=== PATIENT | male | born 1990 | race Caucasian/White ===

== ENCOUNTER 2018-09-15 17:47 | Emergency (ER) | payer BC ==
[2018-09-15] MEDS ORDERED: Albuterol/Ipratropium Neb 3 ML AERS HHN ONE ×2 (18:16→18:28)
--- NOTE | 2018-09-15 18:24 | ED Physician Chart ---
ED Chief Complaint/HPI - Patient Information Date Seen:: 09/15/18 Time Seen:: 18:05 Chief Complaint:: shortness of breath History of Present Illness:: Patient developed shortness of breath 2 days ago. He's had a cough productive of dark yellow sputum for 3 days. He felt warm but has not taken his temperature. Allergies:: Allergies Allergy/AdvReac Type Severity Reaction Status Date / Time No Known Allergies Allergy Verified 09/15/18 17:54 Vitals:: Vital Signs - 8 hr 09/15/18 17:54 Temp 99.5 F HR 126 RR 18 BP 146/82 O2 Sat % 92 Historian:: Patient ED Review of Systems - Review of Systems General/Constitutional: Other (possible fever) Skin: No skin lesions Head: No headache Eyes: No loss of vision ENT: No earache, No sore throat Neck: No neck pain Cardio Vascular: No chest pain, No palpitations Pulmonary: SOB, Cough, Sputum GI: No nausea, No vomiting, No diarrhea G/U: No dysuria Musculoskeletal: Bone or joint pain Endocrine: No polyuria Psychiatric: No prior psych history, No depression, No anxiety Hematopoietic: No bruising Allergic/Immuno: No urticaria Neurological: No syncope ED Past Medical History - Past Medical History Past Medical History: Asthma/COPD Family History: HTN Social History: Smoker, Alcohol, Other (smokes one pack of cigarettes a) Surgical History: other (circumcision only) Psychiatricy History: None Medication: Reviewed ED Physical Exam - Physical Examination General/Constitutional: Awake, Well-developed, well-nourished, Alert, No distress, GCS 15, Non-toxic appearing, Ambulatory Other Gen/Cons comments:: Easy unlabored respirations; speaks effortlessly in full sentences Head: Atraumatic Eyes: Lids, conjuctiva normal, PERRL, EOMI Skin: Nl inspection, No rash, No skin lesions, No ecchymosis, Well hydrated, No lymphadenopathy ENMT: External ears, nose nl, Nasal exam nl, Lips, teeth, gums nl Neck: Nontender, Full ROM w/o pain, No JVD, No nuchal rigidity, No bruit, No mass, No stridor Respiratory: Nl effort/Exclusion Other Respiratory comments:: 3 out of 4 diffuse expiratory wheezing; 2 out of 4 scattered end inspiratory wheezing0 Cardio Vascular: RRR, No murmur, gallop, rubs, NL S1 S2 GI: No tenderness/rebounding/guarding, No organomegaly, No hernia, Normal BS's, Nondistended, No mass/bruits, No McBurney tenderness : No CVA tenderness Extremities: No tenderness or effusion, Full ROM, normal strength in all extremities, No edema, Normal digits & nails Neuro/Psych: Alert/oriented, DTR's symmetric, Normal sensory exam, Normal motor strength, Judgement/insight normal, Mood normal, Normal gait, No focal deficits Misc: Normal back, No paraspinal tenderness ED Assessment - Assessment General Assessment: At 1845 patient felt better. Auscultation of the chest revealed decreased wheezing but still had 2 out of 4 expiratory wheezing and slight . scattered end inspiratory wheezing. He was in no respiratory distress and spoke easily in full sentences at time of discharge. ED Septic Shock - <6hrs of presentation: Vital Signs: Vital Signs - 8 hr 09/15/18 17:54 Temp 99.5 F HR 126 RR 18 BP 146/82 O2 Sat % 92 ED Reassessment (Disposition) - Reassessment Reassessment Condition:: Improved - Diagnosis Diagnosis:: Acute exacerbation of asthma; acute viral bronchitis - Aftercare/Follow up Instructions Medication Prescribed:: Prescription for albuterol metered-dose inhaler to use 2 puffs every 4 hours as necessary for shortness of breath and Dulera metered-dose inhaler to take 2 puffs twice a day. - Patient Disposition Discharge/Transfer:: Home Condition at Disposition:: Stable, Improved
== END 2018-09-15 19:22 | disposition home or self-care (01) ==
LOC: ER 17:47
DX: J45.901 Unspecified asthma with (acute) exacerbation (principal); J20.8 Acute bronchitis due to other specified organisms; F17.210 Nicotine dependence, cigarettes, uncomplicated; Z98.890 Other specified postprocedural states
CPT/HCPCS: 94640; Z7502